=== PATIENT | male | born 1985 | race Caucasian/White ===

== ENCOUNTER 2024-03-08 22:52 | Emergency (ER) | payer OTHER, SELFPAY ==
[2024-03-08 22:59] VITALS: BP 146/98; PULSE 120; RESP 18; TEMP 36.6; O2SAT 100
[2024-03-09 00:23] LABS: Basophils Percent Auto 0.3 % (0.2-1.2); Eosinophils Percent Auto 0.3 % (0-4.4); Hematocrit 50.6 % (42.0-52.0); Hemoglobin 17.5 g/dL (14.0-18.0); Immature Granulocyte Absolute 0.04 K/mm3 (0.00-0.031); Immature Granulocyte Percent A 0.3 % (0-0.5); Lymphocytes Absolute Auto 2.09 K/mm3 (0.9-3.2); Lymphocytes Percent Auto 16.9 % (18.3-44.2); Mean Corpuscular HGB Conc 34.6 g/dl (32-36); Mean Corpuscular Hemoglobin 31.1 pg (26-34); Mean Platelet Volume 10.2 fl (7.4-10.4); Monocytes Percent Auto 7.8 % (2.6-8.5); Neutrophils Absolute Auto 9.2 K/mm3 (1.3-6.7); Neutrophils Percent Auto 74.4 % (45.5-73.1); Platelet Count Result 365 k/mm3 (150-375); Red Blood Count 5.62 M/mm3 (4.6-6.20); Red Cell Distribution Width 11.7 % (11.5-14.5); White Blood Count 12.4 K/mm3 (4.5-10.0)
[2024-03-09 00:28] LABS: Appearance Urine Turbid (Clear); Bacteria Urine None Seen /hpf; Bilirubin Urine Negative (Negative); Blood Urine Negative (Negative); Color Urine Yellow (Yellow); Glucose Urine UA Negative (Negative); Ketones Urine Negative (Negative); Leukocyte Esterase Ur Negative LEU/UL (Negative); Nitrate Urine Negative (Negative); Non Pathogenic Casts 0-2; Protein Urine Negative (Negative); RBC Urine 0-2 /hpf (0-2); Specific Grav Ur 1.018 (1.001-1.035); Squamous Epithelial Cell Urine None Seen /hpf (Few); Urobilinogen Urine 0.2 mg/dL (<2.0); WBC Urine 0-5 /hpf (0-3)
[2024-03-09 00:37] LABS: Alanine Aminotransferase 28 U/L (6-50); Albumin Level 5.4 g/dL (3.5-5.1); Alkaline Phosphatase 106 U/L (38-126); Anion Gap 14 mmol/L (4-12); Aspartate Amino Transferase 30 U/L (17-59); Bilirubin,Total 0.6 mg/dL (0.2-1.3); Blood Urea Nitrogen 19 mg/dL (9-20); Carbon Dioxide 32 mmol/L (22-30); Chloride 92 mmol/L (98-107); Estimated CRCL calculation 94 ml/min; Estimated Glomerular Filt Rate > 60; Glucose 112 mg/dL (65-110); Potassium 4.2 mmol/L (3.4-5.0); Sodium 138 mmol/L (137-145)
[2024-03-09] MEDS: SODIUM CHLORIDE 0.9% IV 2,000 ML 999 ML IV CONT (00:43)
[2024-03-09] MEDS: diazePAM INJ (*CRX) 10 MG/2 ML SYRINGE 5 MG IV PUSH (00:43)
[2024-03-09 00:50] LABS: Add Urine Microscopic? NO
[2024-03-09 01:09] LABS: Ethanol < 10 mg/dL (<10); Magnesium 2.4 mg/dL (1.6-2.3); Phosphorus 3.8 mg/dL (2.5-4.5)
--- NOTE | 2024-03-09 01:31 | ED.GENADULT ---
HPI - General Adult General Chief complaint: Back Pain/Injury Stated complaint: kidney stones? Time Seen by Provider: 03/09/24 00:20 History of Present Illness HPI narrative: This is a 38-year-old male presenting ED with multiple complaints. Patient says that his calves have been twitching throughout the day. He has also noted a pulsating stomach. He then had dull pain in his back. He started cooling his symptoms and he became very anxious that he had some sort of kidney disease. Patient also notes insomnia and difficulty sleeping. Patient and came to the hospital for evaluation. At this time the patient is asymptomatic. He is very anxious and cannot sit still. Patient does use alcohol frequently but no history of withdrawal. He denies use of drugs. Related Data Allergies Allergy/AdvReac Type Severity Reaction Status Date / Time No Known Allergies Allergy Verified 03/08/24 22:53 Exam Narrative: APPEARANCE: Patient appears anxious Head: atraumatic. EYES: EOMI, NOSE: Atraumatic NECK: Trachea midline RESPIRATORY: No increased rate of breathing clear to auscultation CARDIOVASCULAR: Slightly tachycardic ABDOMINAL: Non-distended MUSCULOSKELETAl: No obvious deformities NEURO: Alert. Moving 4/4 extremities SKIN:: Warm, dry. Normal color PSYCHIATRIC: Normal affect Course Vital Signs Vital signs: Vital Signs Temperature 97.8 F 03/08/24 22:59 Pulse Rate 120 H 03/08/24 22:59 Respiratory Rate 18 03/08/24 22:59 Blood Pressure 146/98 H 03/08/24 22:59 Pulse Oximetry 100 03/08/24 22:59 Oxygen Delivery Room Air 03/08/24 22:59 Temperature 97.8 F 03/08/24 22:59 Pulse Rate 120 H 03/08/24 22:59 Respiratory Rate 18 03/08/24 22:59 Blood Pressure 146/98 H 03/08/24 22:59 Pulse Oximetry 100 03/08/24 22:59 Oxygen Delivery Room Air 03/08/24 22:59 Medical Decision Making [facility] Narrative Medical decision making narrative: -Course: Anxious 30-year-old male presenting with multiple complaints. Patient's workup did not show any evidence of kidney injury or electrolyte imbalance. Urine not indicative infection. Patient was given 5 mg of Valium for anxiolysis Results were explained to the patient. I encouraged patient to follow-up with his primary care physician for further management. I suspect his symptoms are due to rule anxiety and possible mild alcohol withdrawal. -DDX includes but is not limited to: Anxiety, electrolyte abnormality, dehydration, alcohol withdrawal -Co-morbidities complicating care: Daily alcohol use -Independent interpretation of studies: Labs reviewed -Interventions: 2 L normal saline, 5 mg Valium -Shared decision making / Disposition: Discharge Vital Signs Vital Signs: Vital Signs Temperature 97.8 F 03/08/24 22:59 Pulse Rate 120 H 03/08/24 22:59 Respiratory Rate 18 03/08/24 22:59 Blood Pressure 146/98 H 03/08/24 22:59 Pulse Oximetry 100 03/08/24 22:59 Oxygen Delivery Room Air 03/08/24 22:59 Temperature 97.8 F 03/08/24 22:59 Pulse Rate 120 H 03/08/24 22:59 Respiratory Rate 18 03/08/24 22:59 Blood Pressure 146/98 H 03/08/24 22:59 Pulse Oximetry 100 03/08/24 22:59 Oxygen Delivery Room Air 03/08/24 22:59 Lab Data 03/09/24 00:16 03/09/24 00:16 Labs: Lab Results 03/09/24 Range/Units 00:16 WBC 12.4 H (4.5-10.0) K/mm3 RBC 5.62 (4.6-6.20) M/mm3 Hgb 17.5 (14.0-18.0) g/dL Hct 50.6 (42.0-52.0) % MCV 90.0 (80-100) fl MCH 31.1 (26-34) pg MCHC 34.6 (32-36) g/dl RDW 11.7 (11.5-14.5) % Plt Count 365 (150-375) k/mm3 MPV 10.2 (7.4-10.4) fl Immature Gran % (Auto) 0.3 (0-0.5) % Neut % (Auto) 74.4 H (45.5-73.1) % Lymph % (Auto) 16.9 L (18.3-44.2) % [place] % (Auto) 7.8 (2.6-8.5) % Eos % (Auto) 0.3 (0-4.4) % Baso % (Auto) 0.3 (0.2-1.2) % Lymph # (Auto) 2.09 (0.9-3.2) K/mm3 [place] # (Auto) 1.0 H (0.1-0.6) K/mm3 Eos # (Auto) 0.0 (0-
[2024-03-09 01:46] VITALS: BP 162/91; PULSE 93; RESP 13; O2SAT 98
[2024-03-09 04:19] LABS: Amphetamine Screen Urine Negative (Negative); Barbiturate Screen Urine Negative (Negative); Benzodiazepines Screen Urine Negative (Negative); Cannabinoid Screen Urine Positive (Negative); Cocaine Screen Urine Negative (Negative); Methadone Screen Urine Negative (Negative); Opiate Screen Urine Negative (Negative); Phencyclidine Screen Urine Negative (Negative)
== END 2024-03-09 02:02 | disposition home or self-care (01) ==
PROVIDERS: Emergency Provider Emergency Medicine; PCP Family Medicine
DX: R25.3 Fasciculation (principal); F41.9 Anxiety disorder, unspecified
CPT/HCPCS: 36415; 80053; 80307; 81003; 83735; 84100; 85025; 96361; 96374; 99284; J3360; J7030